=== PATIENT | male | born 1990 | race Caucasian/White ===

== ENCOUNTER 2021-09-20 16:38 | Inpatient (IN) | payer OTHER, BC ==
[~2021-09-20 16:38] MED LIST: Bupivacaine HCl 0.5%/Epinephrine 1:200,000/PF 30 ml Vial ONE
[2021-09-20] MEDS ORDERED: Ketamine 50 MG/ML (10ML VIAL) ONE (16:55)
[2021-09-20] MEDS ORDERED: Ondansetron PF 4 MG/2 ML Vial ONE (16:55)
[2021-09-20 18:26] LABS: #Lymphocytes 1.1 thou/uL (1.20-3.40); #Monocytes 0.7 thou/uL (0.11-0.59); #Neutrophils 6.7 thou/uL (1.40-6.50); %Basophils 0.1 % (0.0-1.0); %Eosinophils 0.5 % (0.0-10.0); %Lymphocytes 12.8 % (21.0-51.0); %Neutrophils 78.6 % (42.0-75.0); Hemoglobin 14.3 g/dL (14.0-18.0); Mean Corpuscular HGB CONC 34.9 g/dL (32.0-36.0); Mean Corpuscular Hemoglobin 31.8 pg (27.0-31.0); Mean Corpuscular Volume 90.9 fL (78.0-98.0); Mean Platelet Volume 7.1 fL (7.4-10.4); Platelet Count 200 thou/uL (130-400); RBC Distribution Width 12.1 % (11.5-14.5); Red Blood Cell (RBC) Count 4.51 mill/uL (4.70-6.10); White Blood Cell (WBC) Count 8.6 thou/uL (4.8-10.8)
[2021-09-20] MEDS ORDERED: Morphine 4 MG/ML VIAL ONE (18:31)
[2021-09-20 18:38] LABS: INR-International Normal Ratio 1.1; PTT 27.8 sec (22.9-36.1); Prothrombin Time 14.3 sec (12.0-14.7)
[2021-09-20 18:50] LABS: ALT (SGPT) 47 U/L (8-55); AST (SGOT) 35 U/L (5-34); Alkaline Phosphatase 58 U/L (40-110); Anion Gap 13 mmol/L (10-20); BUN (Urea Nitrogen) 21 mg/dL (8.9-20.6); Bilirubin, Total 0.5 mg/dL (0.2-1.2); Calc. Creatinine Clearance 0 mL/min (70-130); Calcium 8.7 mg/dL (7.8-10.44); Carbon Dioxide 20 mmol/L (22-29); Chloride 108 mmol/L (98-107); Glucose 114 mg/dL (70-105); Potassium 3.8 mmol/L (3.5-5.1); Sodium 137 mmol/L (136-145)
[2021-09-20 18:59] LABS: SARS-CoV-2 NAA Rapid Test Not Detected (NotDetected)
[2021-09-20] MEDS ORDERED: Ondansetron PF 4 MG/2 ML Vial IVP PRN (19:24)
[2021-09-20] MEDS ORDERED: Dextrose 50% Abboject 50 ML SYRINGE SLOW IVP PRN (19:24)
[2021-09-20] MEDS ORDERED: Morphine 4 MG/ML VIAL SLOW IVP PRN (19:24)
[2021-09-20] MEDS ORDERED: Dextrose 5% in Water 1,000 ML IV PRN (19:24)
[2021-09-20] MEDS ORDERED: hydrALAZINE 20 MG/ML VIAL SLOW IVP PRN (19:24)
[2021-09-20] MEDS ORDERED: traMADol HCl 50 MG TAB PO PRN ×2 (19:29)
[2021-09-20] MEDS ORDERED: Cyclobenzaprine 10 MG TAB PO PRN (19:29)
[2021-09-20] MEDS ORDERED: Sodium Chloride 0.9% 1,000 ML IV SCH (19:30)
[2021-09-20] MEDS ORDERED: Cyclobenzaprine 10 MG TAB ONE (20:11)
[2021-09-20] MEDS ORDERED: traMADol HCl 50 MG TAB ONE (20:11)
[2021-09-20] MEDS: Senokot S 8.6-50 MG TAB PO SCH (21:23)
[2021-09-20] MEDS: Ibuprofen 200 MG TAB PO SCH (21:23)
[2021-09-20] MEDS: Acetaminophen 500 MG TAB PO SCH (21:24)
[2021-09-20] MEDS: Gabapentin 300 MG CAP PO SCH (21:24)
[2021-09-20] MEDS: Famotidine 20 MG TAB PO SCH (21:24)
[2021-09-20 22:21] VITALS: BMI 40.6
[2021-09-21] MEDS: Acetaminophen 500 MG TAB PO SCH ×4 (02:40→20:54)
[2021-09-21 06:24] LABS: #Eosinphils 0.1 thou/uL (0.0-0.7); #Lymphocytes 1.2 thou/uL (1.20-3.40); #Monocytes 0.7 thou/uL (0.11-0.59); #Neutrophils 3.8 thou/uL (1.40-6.50); %Basophils 0.4 % (0.0-1.0); %Lymphocytes 21.2 % (21.0-51.0); %Monocytes 11.8 % (0.0-10.0); %Neutrophils 65.7 % (42.0-75.0); Hemoglobin 13.6 g/dL (14.0-18.0); Mean Corpuscular HGB CONC 34.1 g/dL (32.0-36.0); Mean Corpuscular Hemoglobin 31.6 pg (27.0-31.0); Mean Corpuscular Volume 92.5 fL (78.0-98.0); Mean Platelet Volume 7.4 fL (7.4-10.4); Platelet Count 167 thou/uL (130-400); RBC Distribution Width 12.2 % (11.5-14.5); White Blood Cell (WBC) Count 5.8 thou/uL (4.8-10.8)
[2021-09-21] MEDS: Ibuprofen 200 MG TAB PO SCH ×3 (06:33→23:08)
[2021-09-21] MEDS ORDERED: ceFAZolin 2 GM/Dextrose 50 ML 2 GM in Premix Bag 1 BAG IVPB SCH (07:45)
[2021-09-21] MEDS: Gabapentin 300 MG CAP PO SCH ×3 (09:31→20:55)
[2021-09-21] MEDS: Famotidine 20 MG TAB PO SCH ×2 (09:32→20:55)
[2021-09-21] MEDS: Senokot S 8.6-50 MG TAB PO SCH ×2 (09:36→20:56)
[2021-09-21] MEDS: Polyethylene Glycol 3350 17 GM Packet PO SCH (09:36)
[2021-09-21 11:06] LABS: Anion Gap 10 mmol/L (10-20); BUN (Urea Nitrogen) 16 mg/dL (8.9-20.6); Calc. Creatinine Clearance 253 mL/min (70-130); Calcium 8.6 mg/dL (7.8-10.44); Carbon Dioxide 23 mmol/L (22-29); Chloride 106 mmol/L (98-107); Glucose 93 mg/dL (70-105); Phosphorus 2.7 mg/dL (2.3-4.7); Potassium 4.1 mmol/L (3.5-5.1); Sodium 135 mmol/L (136-145)
[2021-09-21] MEDS ORDERED: PHOS-NAK 1 PKT PACK PO SCH (11:15)
[2021-09-21] MEDS ORDERED: Midazolam HCl 2 mg/2 ml Vial ONE (14:39)
[2021-09-21] MEDS ORDERED: Fentanyl 100 MCG/2 ML VIAL ONE ×2 (14:39→15:13)
[2021-09-21] MEDS ORDERED: Famotidine/PF 20 mg/2ml Vial ONE (14:49)
[2021-09-21] MEDS ORDERED: ceFAZolin 2 GM/Dextrose 50 ML IVPB ONE (14:59)
[2021-09-21] MEDS ORDERED: Lidocaine 1% PF 5 ML VIAL ONE (15:12)
[2021-09-21] MEDS ORDERED: PROPOFOL 200 MG/20 ML VIAL ONE (15:12)
[2021-09-21] MEDS ORDERED: Meperidine HCl/PF 25 MG/ML VIAL ONE (16:46)
[2021-09-21] MEDS ORDERED: Ondansetron HCl/PF 4 MG/2 ML Vial IVP PRN (16:48)
[2021-09-21] MEDS ORDERED: Promethazine HCl 25 MG/ML VIAL IM PRN (16:48)
[2021-09-21] MEDS ORDERED: Promethazine HCl 25 MG/ML VIAL IVPB PRN (16:48)
[2021-09-21] MEDS ORDERED: Meperidine HCl/PF 25 MG/ML VIAL SLOW IVP PRN (16:48)
[2021-09-21] MEDS ORDERED: Labetalol HCl 100 MG/20 ML VIAL ONE (17:16)
[2021-09-21] MEDS: CEFAZOLIN 2 GM, Admixture Fee 1 EACH in Sodium Chloride 0.9% 100 ML IVPB SCH (23:08)
[2021-09-22] MEDS: Acetaminophen 500 MG TAB PO SCH ×3 (01:40→13:58)
[2021-09-22] MEDS: Ibuprofen 200 MG TAB PO SCH ×2 (05:07→13:57)
[2021-09-22 05:49] LABS: #Lymphocytes 0.8 thou/uL (1.20-3.40); #Monocytes 0.8 thou/uL (0.11-0.59); #Neutrophils 3.5 thou/uL (1.40-6.50); %Basophils 0.1 % (0.0-1.0); %Eosinophils 0.1 % (0.0-10.0); %Lymphocytes 15.3 % (21.0-51.0); %Monocytes 14.9 % (0.0-10.0); %Neutrophils 69.6 % (42.0-75.0); Hemoglobin 13.8 g/dL (14.0-18.0); Mean Corpuscular HGB CONC 34.1 g/dL (32.0-36.0); Mean Corpuscular Hemoglobin 31.6 pg (27.0-31.0); Mean Corpuscular Volume 92.5 fL (78.0-98.0); Mean Platelet Volume 7.5 fL (7.4-10.4); Platelet Count 145 thou/uL (130-400); RBC Distribution Width 12.1 % (11.5-14.5); Red Blood Cell (RBC) Count 4.35 mill/uL (4.70-6.10)
[2021-09-22 06:14] LABS: Anion Gap 14 mmol/L (10-20); BUN (Urea Nitrogen) 14 mg/dL (8.9-20.6); Calc. Creatinine Clearance 209 mL/min (70-130); Calcium 8.5 mg/dL (7.8-10.44); Carbon Dioxide 19 mmol/L (22-29); Chloride 105 mmol/L (98-107); Glucose 105 mg/dL (70-105); Magnesium 2.1 mg/dL (1.6-2.6); Potassium 3.6 mmol/L (3.5-5.1); Sodium 134 mmol/L (136-145)
[2021-09-22] MEDS ORDERED: Potassium Chloride 20 MEQ TAB PO SCH (07:45)
[2021-09-22] MEDS ORDERED: PHOS-NAK 1 PKT PACK PO SCH (07:45)
[2021-09-22] MEDS ORDERED: Aspirin 81 mg Enteric Coated Tablet PO SCH (09:00)
[2021-09-22] MEDS: CEFAZOLIN 2 GM, Admixture Fee 1 EACH in Sodium Chloride 0.9% 100 ML IVPB SCH ×2 (09:22→13:59)
[2021-09-22] MEDS: Famotidine 20 MG TAB PO SCH (09:24)
[2021-09-22] MEDS: Polyethylene Glycol 3350 17 GM Packet PO SCH (09:24)
[2021-09-22] MEDS: Gabapentin 300 MG CAP PO SCH ×2 (09:24→13:58)
[2021-09-22] MEDS: Senokot S 8.6-50 MG TAB PO SCH (09:25)
[2021-09-22 12:33] VITALS: BP 109/65; TEMP 98.9
== END 2021-09-22 14:45 | disposition home or self-care (01) | DRG 494 ==
LOC: ERS 16:38 → SURG B 18:07
PROVIDERS: ADMIT Surgery; ATTEND Surgery
PROC: 0QSK04Z Reposition Left Fibula with Internal Fixation Device, Open Approach (ICD-10-PCS; principal; 2021-09-21)
DX: S82.62XA Displaced fracture of lateral malleolus of left fibula, initial encounter for closed fracture (principal); F17.210 Nicotine dependence, cigarettes, uncomplicated; Z20.822 Contact with and (suspected) exposure to COVID-19; V87.8XXA Person injured in other specified noncollision transport accidents involving motor vehicle (traffic), initial encounter; Y92.89 Other specified places as the place of occurrence of the external cause
CPT/HCPCS: 27840; 36415; 71045; 76000; 80048; 80053; 83735; 84100; 85025; 85610; 85730; 93005; 96374; 96375; 99156; C1713; C1776; G0390; J0690; J2175; J2250; J2270; J2405; J2704; J3010; J3490; J7050; J7620; S0028; U0002